=== PATIENT | female | born 1960 | race Caucasian/White ===

== ENCOUNTER → 2016-10-05 | Outpatient (CLI) | payer BC, OTHER ==
[~2016-10-05] MED LIST: HYDR-5688 PO; LEVO50TA6 PO; LOSA25TA18 PO; TRAM-10 PO
[2016-10-05 17:45] LABS: BLOOD UREA NITROGEN 11 mg/dl (7-18); CALCIUM 9.1 mg/dl (8.5-10.1); CARBON DIOXIDE 28 mmol/L (21-32); CHLORIDE 104 mmol/L (98-107); CREATININE 0.94 mg/dl (0.60-1.20); GLUCOSE 81 mg/dl (70-99); POTASSIUM 3.8 mmol/L (3.5-5.1); SODIUM 140 mmol/L (136-145)
== END | disposition home or self-care (01) ==
LOC: C.LABBFT 10:42
PROVIDERS: ATTEND Nurse Practitioner
DX: E03.9 Hypothyroidism, unspecified (principal); I10 Essential (primary) hypertension

== ENCOUNTER 2016-10-15 21:57 | Emergency (ER) | payer BC ==
[~2016-10-15] VITALS: Ht 167.6 cm; Wt 90.3 kg
[2016-10-15 22:05] VITALS: TEMP 36.7; Ht 167.6 cm; Wt 90.3 kg
[2016-10-15] MEDS ORDERED: IBUPROFEN 600 MG TAB PO STA (22:15)
[2016-10-15] MEDS ORDERED: HYDROCODONE/ACETAMOPHEN 5/325MG TAB PO ONE (22:15)
[2016-10-15] MEDS ORDERED: LEVO50TA6 PO (22:23)
[2016-10-15] MEDS ORDERED: TRAM-10 PO (22:23)
[2016-10-15] MEDS ORDERED: LOSA25TA18 PO (22:23)
--- NOTE | 2016-10-15 22:49 | DIAGNOSTIC IMAGING REPORT ---
RIGHT FOOT 3 VIEWS CLINICAL HISTORY: Fall with right foot injury. FINDINGS: 3 views of the right foot are obtained. No prior studies are available for comparison at the time of dictation. The skeletal structures are osteopenic. No fracture is seen. Mild degenerative change is noted at the first metatarsophalangeal joint. The joint spaces are otherwise maintained. The overlying soft tissues are within normal limits. A large plantar heel spur is noted. IMPRESSION: No acute bony abnormality is seen in the right foot. Electronically signed by: Dillon Rangel M.D. 10/15/2016 10:48 PM Dictated Date/Time: 10/15/2016 10:46 PM
--- NOTE | 2016-10-15 22:52 | DIAGNOSTIC IMAGING REPORT ---
LEFT FOREARM 2 VIEWS CLINICAL HISTORY: Fall with left arm pain. FINDINGS: AP and lateral views of the left forearm are obtained. No prior studies are available for comparison at the time of dictation. The skeletal structures are osteopenic. No fracture is seen. The wrist and elbow joints appear maintained. The overlying soft tissues are within normal limits. IMPRESSION: There is no radiographic evidence of left forearm fracture. Electronically signed by: Dillon Rangel M.D. 10/15/2016 10:51 PM Dictated Date/Time: 10/15/2016 10:49 PM
[2016-10-15] MEDS ORDERED: HYDR-5688 PO (23:09)
[2016-10-15 23:10] VITALS: BP 145/83; PULSE 71; O2SAT 96
[2016-10-15] MEDS ORDERED: NORCO 5/325MG HOME PACK PO ONE (23:15)
--- NOTE | 2016-10-16 00:54 | EMERGENCY ROOM VISIT NOTE ---
History First contact with patient: 22:08 Chief Complaint: FOOT PAIN Stated Complaint: RIGHT FOOT SWOLLEN, MAYBE BROKEN TOE History of Present Illness The patient is a 56 year old female who presents to the Emergency Room with complaints of right foot and left arm pain after falling outside about 4 hours ago. The patient states that she slipped on ice on her deck, and twisted her foot. She was able to ambulate after the injury, but has developed bruising and swelling that has her concerned for a possible fracture. The patient did not have chest pain, chest tightness, shortness of breath, lightheadedness, dizziness, or palpitations before or after the event. The fall appears to be mechanical in nature. She rates her current discomfort a 5/10 that worsens with ambulation. She does not have a history of previous injury to this foot or forearm. No bleeding noted or other injuries. Review of Systems More than 10 systems were reviewed and otherwise negative with the exception of history of present illness. Past Medical/Surgical History No pertinent chronic medical disease Family History No pertinent family history Social History Smoking Status: Never Smoker Housing Status: lives with family Current/Historical Medications Scheduled Levothyroxine Sodium (Levothyroxine Sodium), 1 TAB PO DAILY Losartan Potassium (Cozaar), Unknown Dose PO DAILY Scheduled PRN Hydrocodone/Acetaminophen 5MG/325MG (Vivian 5MG/325MG), 1 TABLET PO Q6 PRN for Pain Tramadol (Ultram), 50 MG PO Q4H PRN for Pain Allergies Coded Allergies: No Known Allergies (Unverified , 10/15/16) Physical Exam Vital Signs Date Time Temp Pulse Resp B/P Pulse Ox O2 Delivery O2 Flow Rate FiO2 10/15/16 23:10 71 16 145/83 96 Room Air 10/15/16 22:05 36.7 106 16 154/98 96 Room Air Pain Rating (0-10): 2.0 Physical Exam VITALS: Vitals are noted on the nurse's note and reviewed by myself. Vital signs stable. GENERAL: Well-developed, well-nourished, white female, who is in no acute distress and resting comfortably. Patient is cooperative with the examination. HEAD: Normocephalic atraumatic. NECK: Supple without nuchal rigidity. No lymphadenopathy. No thyromegaly. Cervical spine is nontender. HEART: Regular rate and rhythm without murmurs gallops or rubs. LUNGS: Clear to auscultation bilaterally without wheezes, rales or rhonchi. No retractions or accessory muscle use. MUSCULOSKELETAL: Bruising appreciated over the mid left forearm measuring approximately 3 cm in diameter. There is no laceration or deformity of the left upper extremity. Additionally the right foot has bruising and ecchymosis over the first, second, third metatarsals. These areas are tender on palpation. Neurovascular status is intact about the extremities. No bleeding or gross deformities. NEURO: Patient was alert and oriented to person place and time. CN II through XII grossly intact. Medical Decision & Procedures ER Provider Diagnostic Interpretation: RIGHT FOOT 3 VIEWS CLINICAL HISTORY: Fall with right foot injury. FINDINGS: 3 views of the right foot are obtained. No prior studies are available for comparison at the time of dictation. The skeletal structures are osteopenic. No fracture is seen. Mild degenerative change is noted at the first metatarsophalangeal joint. The joint spaces are otherwise maintained. The overlying soft tissues are within normal limits. A large plantar heel spur is noted. IMPRESSION: No acute bony abnormality is seen in the right foot. LEFT FOREARM 2 VIEWS CLINICAL HISTORY: Fall with left arm pain. FINDINGS: AP and lateral views of the left forearm are obtained. No prior studies are available for comparison at the time of dictation. The skeletal structures are osteopenic. No fracture is seen. The wrist and elbow joints appear maintained. The overlying soft tissues are within normal limits. IMPRESSION: There is no radiographic evidence of left forearm fracture. Medications Administered Medications (Trade) Dose Ordered Sig/Kristan Route Start Time Stop Time Status Last Admin Dose Admin Acetaminophen/ Hydrocodone Bitart (Vivian 5/325 Tab) 1 tab NOW ONCE PO 10/15/16 22:15 10/15/16 22:16 DC 10/15/16 22:41 1 TAB Ibuprofen (Motrin Tab) 600 mg NOW STAT PO 10/15/16 22:15 10/15/16 22:16 DC 10/15/16 22:40 600 MG Acetaminophen/ Hydrocodone Bitart (Vivian 5/325mg Home Pack) 1 homepack UD ONCE PO 10/15/16 23:15 10/15/16 23:16 DC 10/15/16 23:16 1 HOMEPACK ED Course Physical exam and history were performed. Nursing notes and EMR were reviewed. Patient appears to have suffered a mechanical fall with subsequent injury to her right foot and left forearm. The patient was given 1 tablet of oral Vicodin here in the department as well as 600 mg ibuprofen. X-rays were obtained and do not show evidence of acute fractures or dislocation. I discussed up with her care with the patient, and will place her in a postop shoe. She does have crutches from home that she is comfortable using. The patient was asked to follow with orthopedics for further care and management. She was given a note for work. The patient was otherwise invited back to the ER with any new, worsening, or concerning symptoms. The chart was completed utilizing [employer] Voice Recognition Software. Grammatical errors, random word insertions, pronoun errors, and incomplete sentences are an occasional consequence of this system due to software limitations, ambient noise, and hardware issues. Any formal questions or concerns about the content, text, or information contained within the body of this dictation should be directly addressed to the provider for clarification. . Medical Decision Differential diagnosis includes, but is not limited to: Sprain, strain, fracture , dislocation, subluxation, contusion, and others Impression Primary Impression: Injury of right foot Additional Impression: Injury of left forearm Departure Information Dispostion Home / Self-Care Condition GOOD Prescriptions Hydrocodone/Acetaminophen 5MG/325MG (Vivian 5MG/325MG) Tab 1 TABLET PO Q6 Y for Pain, #12 TAB For Initial Treatment Prov: Dustin Kumar PA-C 10/15/16 Referrals Tashi Forbes D.O. Forms HOME CARE DOCUMENTATION FORM, Work Instructions, Additional Instructions: Patient was seen and evaluated today in the emergency department fo medical care. Return to work on 10/19/2016. Please excuse. IMPORTANT VISIT INFORMATION Patient Instructions [facility] Additional Instructions You were seen and evaluated today on an emergency basis only. This is not a substitute for, or an effort to provide, complete comprehensive medical care. It is not possible to recognize and treat all injuries or illnesses in a single emergency department visit. For this reason it is recommended that you followup with [facility] , Dr. Forbes's office, in about one week for ongoing care and evaluation. For baseline pain relief you may alternate ibuprofen and acetaminophen every 4 hours for pain control. Take 600 mg ibuprofen (Advil) and then 4 hours later take 1000 mg acetaminophen (Tylenol). Do not take more than 3000 mg acetaminophen in a single day. Vivian (hydrocodone/acetaminophen) 5/325 mg every 6 hours as needed for worsening breakthrough pain. Do not drink or drive on Vivian. This medication will likely make you tired. Do not take Vivian and Tylenol at the same time as both contain acetaminophen. Vivian may cause constipation. You may wish to take an [id number] stool softener like Colace if this occurs. Wear your postop shoe and use your crutches until otherwise instructed by orthopedics. You are welcome to return to the emergency department anytime with new, worsening, or concerning symptoms. Work Instructions Additional Work Instructions: Patient was seen and evaluated today in the emergency department for medical care. Return to work on 10/19/2016. Please excuse. Problem Qualifiers
== END 2016-10-15 23:20 | disposition home or self-care (01) ==
LOC: C.EDB 21:58
DX: S99.921A Unspecified injury of right foot, initial encounter (principal); S59.912A Unspecified injury of left forearm, initial encounter; W00.0XXA Fall on same level due to ice and snow, initial encounter; Y92.008 Other place in unspecified non-institutional (private) residence as the place of occurrence of the external cause

== ENCOUNTER 2025-01-26 10:13 | Inpatient (IN) ==
--- NOTE | 2025-01-26 10:43 | Emergency Department Note ---
Impression & Plan Acute renal failure, Dehydration, Intractable nausea, Hypokalemia, Epigastric abdominal pain ED Provider Note CHIEF COMPLAINT: Abdominal pain HISTORY OF PRESENTING ILLNESS: This 64-year-old female patient presents to the emergency department for evaluation of epigastric abdominal pain and constant nausea. She has had symptoms for the past couple weeks, but worse over the past 4 days. She denies any vomiting. She has not had a bowel movement in the past 2 days. She denies any urinary symptoms. Maybe a fever and chills the first day, but she did not check her temperature. She has not been eating or drinking much recently because of the symptoms. She has been taking Zofran and Carafate at home without much improvement of her symptoms. She also took Tylenol with mild improvement of her pain, but not the nausea. She had an EGD after her previous episode of similar symptoms 2 months ago that was normal per patient. She states that she called her PCP this morning and they sent her to the ER. She has had a hysterectomy, but no other abdominal surgeries. She denies any chest pain or shortness of breath. REVIEW OF SYSTEMS: See HPI for pertinent positives and pertinent negatives. ALLERGIES: NKDA MEDICATIONS: See below PAST MEDICAL HISTORY: See below PHYSICAL EXAM: VITALS: Vitals are noted on the nurse's note and reviewed by myself. GENERAL: Non toxic, in no acute distress, non-diaphoretic. SKIN: Capillary refill <2 sec. EYES: PERRLA. EOMI. Conjunctivae without injection, sclerae without icterus. NOSE: Patent without discharge. MOUTH: Mucous membranes moist. Uvula midline. Airway patent. NECK: Supple without nuchal rigidity. HEART: Regular rate and rhythm without murmurs gallops or rubs. LUNGS: Clear to auscultation bilaterally without wheezes, rales or rhonchi. No retractions or accessory muscle use. ABDOMEN: Positive bowel sounds x 4. Normal tympanic percussion. Soft, mild epigastric abdominal tenderness. No masses or hepatosplenomegaly. Perez sign negative. No CVA tenderness. No guarding, rigidity, or rebound tenderness. No focal RLQ or LLQ tenderness. MUSCULOSKELETAL: No gross musculoskeletal defects. NEURO: Patient was alert and oriented. No focal neurological deficits. DIFFERENTIAL DIAGNOSIS: Differential diagnosis includes hepatitis, pancreatitis, cholecystitis, cholelithiasis, appendicitis, kidney stone, pyelonephritis, UTI, gastritis, gastroenteritis, mesenteric adenitis, obstruction, constipation, hernia, abdominal abscess, perforation, diverticulitis, IBD, ischemic colitis, abdominal aortic aneurysm, , ectopic , ovarian cyst, ovarian torsion, acute salpingitis, or others. ED COURSE AND MEDICAL DECISION MAKING: MEDICATIONS GIVEN: 500 mL normal saline solution bolus. Tylenol 1000 mg IV. Zofran 4 mg IV. Reglan 10 mg IV. K rider 10 meq IV x 2. MONITOR: Continuous court recording monitor: Order was placed for continuous court recording monitor. Patient was placed on the court recording monitor and continuous pulse ox. Patient was noted to be in normal sinus rhythm at an initial rate of 70 bpm per my interpretation. EKG: EKG was interpreted by myself as normal sinus rhythm at [address] and T wave changes, but no significant change from her previous EKG and no evidence for acute STEMI. INTERPRETATION OF LABS: I interpreted the labs with full lab results as below in the lab section of this note. Laboratory results pertinent to the emergent complaint are discussed in the MDM section below. The patient was advised to follow up with their PCP and/or specialist(s) for further outpatient monitoring and management of any abnormal results. INTERPRETATION OF IMAGING: Imaging studies were interpreted by myself and read by radiology as per the imaging section of this note. The patient was advised to follow up with their PCP and/or specialist(s) for further outpatient management of any non-emergent abnormal findings. Chest x-ray negative for acute cardiopulmonary etiology. CT scan of the abdomen pelvis without contrast showed no acute intra-abdominal or intrapelvic abnormality. CONSULTATIONS: On-call hospitalist MDM SUMMARY: I examined the patient. The patient has had constant nausea for the past couple weeks that has been worse for the past 4 days with some mild discomfort in her epigastric area. She has not had a bowel movement in the past 2 days. She denies any chest pain or shortness of breath. An IV lock was placed and labs were drawn. The patient was given 500 mL normal saline solution bolus, Tylenol 1000 mg IV, Zofran 4 mg IV, and Reglan 10 mg IV without much improvement of her symptoms. The patient's potassium was low and she was given K rider 10 meq IV x 2. CBC normal at 5.84. Hemoglobin normal at 13. Platelet count elevated at 402. Sodium 135, potassium 2.8, chloride 97, anion gap 13, creatinine 1.83, and glucose 121. CMP otherwise normal. Magnesium normal. High-sensitivity troponin normal. TSH low at 0.267 with free T4 low at 1.65. The patient initially could not give a urine sample in the ER, but her urinalysis came back just that she was being admitted. Urinalysis with trace blood, trace ketones, 2+ leukocyte Estrace, 21-50 white blood cells, 6-10 hyaline cast, 3-5 epithelial cells, and 1+ bacteria. The patient denies any urinary symptoms. Urine culture is pending. Chest x-ray negative for acute cardiopulmonary etiology. CT scan of the abdomen pelvis without contrast showed no acute intra-abdominal or intrapelvic abnormality. I had a meaningful discussion about this patient with Dr. Lujan who agrees with my assessment and the treatment plan. The patient has had prolonged symptoms and is not really eating or drinking much at home. The patient did not have much improvement with the medications given in the ER. Her creatinine is worse compared to her baseline. Potassium also low at 2.8. Urine questionable for infection versus contamination with urine culture pending. CT scan without acute abnormalities. Due to the patient's continued symptoms, dehydration, and laboratory findings, we feel the patient would benefit from admission for further evaluation and treatment. I spoke with the on-call hospitalist who agreed to admit the patient for further evaluation and treatment. Please refer to their dictation for further details. The patient's care was transferred in stable condition. DIAGNOSIS: Acute renal failure Dehydration Intractable nausea Epigastric abdominal pain Hypokalemia Past Med/Surg History Problem List (Updated 01/26/25 @ 15:29 by Jennifer Lopez PA-C) Epigastric abdominal pain (Acute) Hypokalemia (Acute) Intractable nausea (Acute) Dehydration (Acute) Acute renal failure (Acute) Menopausal symptoms (Acute) Enlarged thyroid (Acute) Medical History Nicotine dependence, cigarettes, uncomplicated Renal cyst Alcohol use disorder GERD (gastroesophageal reflux disease) Anxiety Hyperlipidemia Hypertension Hypothyroidism Vitamin B12 deficiency Surgical History No significant past surgical history Family History Other Hypertension Denies family history of Ovarian cancer Breast cancer Colorectal cancer Social History Smoking Status: Current every day smoker Tobacco Type: Cigarettes Age Started Using Tobacco: 17; packs per day: 0.25; Cigarettes Per Day: 15; Second Hand Exposure: Yes; Do You Dip or Chew Tobacco: No; Hx Alcohol Use: Yes Alcohol type: beer, wine and hard liquor Alcohol Intake Frequency: Monthly or Less Hx Substance Use: No Preferred Language: Iraqi marital status: / Current Living Situation: Alone current occupational status: retired Feels Safe at Home: Yes Childhood Exposure to Second-Hand Smoke: No Diet: regular caffeine: Yes Dental Care, Regularly: Yes Physical Activity Frequency: Daily Seatbelt Use: always Sunscreen Use: Yes Allergies Allergies Allergy/AdvReac Type Severity Reaction Status Date / Time No Known Allergies Allergy Verified 06/16/24 11:18 Home Meds Home Medications Medication Instructions Recorded Confirmed pantoprazole 40 mg tablet,delayed 40 mg PO BID 01/26/25 01/26/25 release (Protonix) sucralfate 1 gram tablet 1 g PO QID 01/26/25 01/26/25 Previous Rx's Medication Instructions Recorded atorvastatin 40 mg tablet 40 mg PO DAILY #90 tabs 07/24/24 losartan 100 mg tablet 100 mg PO DAILY 90 days #90 tabs 07/24/24 amlodipine 10 mg tablet 10 mg PO DAILY #90 tabs 08/18/24 fluoxetine 40 mg capsule 40 mg PO DAILY #90 caps 08/18/24 hydrochlorothiazide 12.5 mg tablet 12.5 mg PO DAILY #90 tabs 08/18/24 levothyroxine 137 mcg tablet 137 mcg PO DAILY #90 tabs 12/11/24 Results & Data (ED) Vital Signs Vital Signs - 24 hr 01/26/25 10:19 01/26/25 10:52 01/26/25 11:00 Temperature 36.6 C Temperature Source Oral Pulse Rate 92 H 75 73 Pulse Rate from SpO2 Sensor 72 Respiratory Rate 20 18 Respiratory Effort / Characteristics Non-Labored Spontaneous Respiratory Depth Normal Respiratory Pattern Regular Blood Pressure 119/78 118/76 Blood Pressure [Left Arm] Blood Pressure Mean 91 90 Blood Pressure Mean [Left Arm] Blood Pressure Position [Left Arm] Pulse Oximetry 98 91 Oxygen Delivery Method Room Air Sepsis Recent Fever Within 48 Hours No Sepsis New/Unexplained Change in Mental Status N/A Sepsis Action Taken by Nursing No Action Required 01/26/25 11:00 01/26/25 11:27 01/26/25 11:30 Temperature Temperature Source Pulse Rate 64 Pulse Rate from SpO2 Sensor 63 Respiratory Rate 12 Respiratory Effort / Characteristics Respiratory Depth Respiratory Pattern Blood Pressure 118/76 118/74 Blood Pressure [Left Arm] Blood Pressure Mean 94 91 Blood Pressure Mean [Left Arm] Blood Pressure Position [Left Arm] Pulse Oximetry 96 Oxygen Delivery Method Sepsis Recent Fever Within 48 Hours Sepsis New/Unexplained Change in Mental Status Sepsis Action Taken by Nursing 01/26/25 11:39 01/26/25 12:00 01/26/25 12:00 Temperature Temperature Source Pulse Rate 62 57 L Pulse Rate from SpO2 Sensor 61 60 Respiratory Rate 18 11 L Respiratory Effort / Characteristics Respiratory Depth Respiratory Pattern Blood Pressure 118/68 Blood Pressure [Left Arm] Blood Pressure Mean 86 Blood Pressure Mean [Left Arm] Blood Pressure Position [Left Arm] Pulse Oximetry 96 72 L Oxygen Delivery Method Sepsis Recent Fever Within 48 Hours Sepsis New/Unexplained Change in Mental Status Sepsis Action Taken by Nursing 01/26/25 12:00 01/26/25 12:39 01/26/25 12:54 Temperature Temperature Source Pulse Rate 57 L Pulse Rate from SpO2 Sensor 57 L Respiratory Rate 19 Respiratory Effort / Characteristics Respiratory Depth Respiratory Pattern Blood Pressure 118/68 143/78 H Blood Pressure [Left Arm] Blood Pressure Mean 86 95 Blood Pressure Mean [Left Arm] Blood Pressure Position [Left Arm] Pulse Oximetry 99 Oxygen Delivery Method Sepsis Recent Fever Within 48 Hours Sepsis New/Unexplained Change in Mental Status Sepsis Action Taken by Nursing 01/26/25 14:00 Temperature Temperature Source Pulse Rate Pulse Rate from SpO2 Sensor Respiratory Rate 20 Respiratory Effort / Characteristics Non-Labored Spontaneous Respiratory Depth Normal Respiratory Pattern Regular Blood Pressure Blood Pressure [Left Arm] 137/102 H Blood Pressure Mean Blood Pressure Mean [Left Arm] 113 Blood Pressure Position [Left Arm] Lying Pulse Oximetry 98 Oxygen Delivery Method Room Air Sepsis Recent Fever Within 48 Hours Sepsis New/Unexplained Change in Mental Status Sepsis Action Taken by Nursing Laboratory Data 01/26/25 10:45 01/26/25 10:45 Lab Results 01/26/25 01/26/25 Range/Units 10:45 12:55 WBC 5.84 (4.8-10.8) K/ul RBC 4.43 (4.20-5.40) M/uL Hgb 13.0 (12.0-16.0) g/dl Hct 37.1 (37.0-47.0) % MCV 83.7 (80.0-100.0) fL MCH 29.3 (25.0-34.0) pg MCHC 35.0 (32.0-36.0) g/dL RDW Std Deviation 40.9 (36.4-46.3) fL RDW Coeff of Divine 13.3 (11.5-14.5) % Plt Count 402 H (130-400) K/uL MPV 9.8 (9.4-12.4) fL Immature Gran % (Auto) 0.2 % Neut % (Auto) 63.9 % Lymph % (Auto) 23.6 % Perry % (Auto) 9.4 % Eos % (Auto) 2.2 % Baso % (Auto) 0.7 % Neut # (Auto) 3.73 (1.40-6.50) K/uL Lymph # (Auto) 1.38 (1.20-3.40) K/uL Perry # (Auto) 0.55 (0.11-0.59) K/uL Eos # (Auto) 0.13 (0.00-0.50) K/uL Baso # (Auto) 0.04 (0.00-0.20) K/uL Immature Gran # (Auto) 0.01 (0.01-0.20) K/uL Sodium 135 L (136-145) mmol/L Potassium 2.8 L (3.5-5.1) mmol/L Chloride 97 L (98-107) mmol/L Carbon Dioxide 25 (21-32) mmol/L Anion Gap 13 H (3-11) BUN 21 (6-23) mg/dl Creatinine 1.83 H (0.6-1.2) mg/dl Est Cr Clr Drug Dosing 34.7 ml/min eGFR 30.27 BUN/Creatinine Ratio 11.5 (10-20) Glucose 121 H (70-99(Fasting)) mg/dl Calcium 9.7 (8.6-10.3) mg/dl Magnesium 1.8 (1.7-2.4) mg/dl Total Bilirubin 0.5 (0.2-1.0) mg/dl AST 16 (13-39) U/L ALT 13 (7-52) U/L Alkaline Phosphatase 85 (34-104) U/L Troponin I High Sens 9.1 (0-14) pg/ml Total Protein 7.7 (6.0-8.3) gm/dl Albumin 4.5 (3.4-5.0) gm/dl Globulin 3.2 (2.5-4.0) gm/dl Albumin/Globulin Ratio 1.4 (0.9-2) Lipase 19 (11-82) U/L TSH 0.267 L (0.300-4.500) uIu/ml Free T4 1.65 H (0.61-1.60) ng/dl Urine Color Yellow Urine Appearance Clear (Clear) Urine pH 5.5 (4.5-7.5) Ur Specific Shelby 1.013 (1.000-1.030) Urine Protein Negative (Negative) Urine Glucose (UA) Negative (Negative) Urine Ketones Trace H (Negative) Urine Blood Trace H (Negative) Urine Nitrite Negative (Negative) Urine Bilirubin Negative (Negative) Urine Urobilinogen Negative (Negative) Ur Leukocyte Esterase 2+ H (Negative) Urine WBC (Auto) 21-50 H (0-5) /hpf Urine RBC (Auto) 0-2 (0-2) /hpf U Hyaline Cast (Auto) 6-10 H (0-2) /lpf U Epithel Cells (Auto) 3-5 H (0-2) /hpf Urine Bacteria (Auto) 1+ H (None Seen) Hyaline Casts Present A (None Presnt) /lpf Urine Comment Administered Medications Discontinued Medications Sodium Chloride (Nss) 500 mls @ 999 mls/hr IV .Q31M ONE Stop: 01/26/25 11:28 Last Infusion: 01/26/25 12:56 Dose: Infused Documented By: Admin: 01/26/25 11:19 Dose: 999 mls/hr Documented By: Acetaminophen (Ofirmev) 1,000 mg in 100 mls @ 400 mls/hr IV NOW STA Stop: 01/26/25 11:12 Last Infusion: 01/26/25 12:55 Dose: Infused Documented By: Admin: 01/26/25 11:21 Dose: 400 mls/hr Documented By: Potassium Chloride (K Jack / Wtr) 10 meq in 100 mls @ 100 mls/hr IV Q1H GENNARO Stop: 01/26/25 13:59 Last Admin: 01/26/25 14:10 Dose: 100 mls/hr Documented By: Infusion: 01/26/25 13:55 Dose: Infused Documented By: Admin: 01/26/25 12:55 Dose: 100 mls/hr Documented By: ABRAM Metoclopramide HCl (Metoclopramide Hcl Inj 5 Mg/Ml 2 Ml Vial) 10 mg IV NOW STA Stop: 01/26/25 12:59 Last Admin: 01/26/25 14:10 Dose: 10 mg Documented By: TDM Ondansetron HCl (Ondansetron Inj 2 Mg/Ml 2 Ml Vial) 4 mg IV NOW STA Stop: 01/26/25 10:59 Last Admin: 01/26/25 11:19 Dose: 4 mg Documented By: MR Imaging Data Radiologist's Impression: Chest X-Ray 01/26/25 11:01 XR chest 1V portable CLINICAL HISTORY: Upper abdominal pain, nausea COMPARISON STUDY: 10/10/2024 FINDINGS: Heart size and pulmonary vasculature are normal. No effusion, consolidation, or pneumothorax. IMPRESSION: No acute findings. ACT 112: Negative or not required by law. Electronically signed by: Luther Green M.D. 01/26/2025 11:49 AM Abdomen/Pelvis CT 01/26/25 11:[address] WITHOUT CONTRAST CT DOSE: 1330.13 mGy.cm HISTORY: Acute upper abdominal pain with nausea upper abdominal pain, nausea TECHNIQUE: Multiaxial CT images of the abdomen and pelvis were performed without contrast. A dose lowering technique was utilized adhering to the principles of ALARA. COMPARISON STUDY: 10/10/2024 FINDINGS: Clear lung bases. Mural fibrofatty changes of the left ventricular apex compatible with a prior infarct. No pneumatosis or pneumoperitoneum. The unenhanced spleen, pancreas, gallbladder, adrenal glands and liver are within normal limits. Mild nonspecific bilateral perinephric stranding. No hydronephrosis. Complex cyst of the superior pole right kidney redemonstrated, 1.4 cm. Partial distention of the urinary bladder. Atherosclerosis of the aorta. No lymphadenopathy. No bowel obstruction or bowel wall thickening. Colonic diverticulosis without acute diverticulitis. No CT evidence of acute appendicitis. No acute fracture. IMPRESSION: 1. No acute intra-abdominal or intrapelvic abnormality. 2. Incidental findings as above. ACT 112: Negative or not required by law. The above report was generated using voice recognition software. It may contain grammatical, syntax or spelling errors. Electronically signed by: Ramirez Flores M.D. 01/26/2025 1:01 PM Discharge Plan Visit Data Chief Complaint: Abdominal Pain Stated Complaint: SICK STOMACH ED Provider: Shun Lujan ED Midlevel Provider: Jennifer Lopez Discharge Problem: Acute renal failure, Dehydration, Intractable nausea, Hypokalemia, Epigastric abdominal pain Patient Disposition: Admitted As Inpatient Condition: Fair Prescriptions Prescriptions: No Action atorvastatin 40 mg tablet 40 mg PO DAILY Qty: 90 3RF losartan 100 mg tablet 100 mg PO DAILY 90 Days Qty: 90 4RF amlodipine 10 mg tablet 10 mg PO DAILY Qty: 90 3RF fluoxetine 40 mg capsule 40 mg PO DAILY Qty: 90 3RF hydrochlorothiazide 12.5 mg tablet 12.5 mg PO DAILY Qty: 90 3RF levothyroxine 137 mcg tablet 137 mcg PO DAILY Qty: 90 3RF sucralfate 1 gram tablet 1 g PO QID pantoprazole [Protonix] 40 mg tablet,delayed release (DR/EC) 40 mg PO BID Referrals Referrals: Jennie Aquino MD [Primary Care Provider] - Discharge Problem: Acute renal failure Qualifiers: Acute renal failure type: unspecified Qualified Code(s): N17.9 - Acute kidney failure, unspecified
[2025-01-26 11:15] LABS: Basophils # (auto) 0.04 K/uL (0.00-0.20); Basophils % (auto) 0.7 %; Eosinophils # (auto) 0.13 K/uL (0.00-0.50); Eosinophils % (auto) 2.2 %; Hematocrit (blood only) 37.1 % (37.0-47.0); Immature Granulocytes # (auto) 0.01 K/uL (0.01-0.20); Immature Granulocytes % (auto) 0.2 %; Lymphocytes # (auto) 1.38 K/uL (1.20-3.40); Lymphocytes % (auto) 23.6 %; Mean Corpuscular Hemoglobin 29.3 pg (25.0-34.0); Mean Corpuscular Volume 83.7 fL (80.0-100.0); Mean Platelet Volume 9.8 fL (9.4-12.4); Monocytes # (auto) 0.55 K/uL (0.11-0.59); Monocytes % (auto) 9.4 %; Neutrophils # (auto) 3.73 K/uL (1.40-6.50); Neutrophils % (auto) 63.9 %; Platelet Count 402 K/uL (130-400); RDW Coefficient of Variation 13.3 % (11.5-14.5); RDW Standard Deviation 40.9 fL (36.4-46.3); Red Blood Count 4.43 M/uL (4.20-5.40); White Blood Count 5.84 K/ul (4.8-10.8)
[2025-01-26] MEDS: SODIUM CHLORIDE 0.9% 500 ML IV ONE (11:19)
[2025-01-26] MEDS: ONDANSETRON INJ 2 MG/ML 2 ML VIAL IV STA (11:19)
[2025-01-26] MEDS: ACETAMINOPHEN 1,000 MG/100 ML VIAL IV STA (11:21)
[2025-01-26 11:44] LABS: Albumin Globulin Ratio 1.4 (0.9-2); Albumin Level 4.5 gm/dl (3.4-5.0); BUN Creatinine Ratio 11.5 (10-20); Bilirubin,Total 0.5 mg/dl (0.2-1.0); Calcium 9.7 mg/dl (8.6-10.3); Creatinine Clr Calc Pharmacy 34.7 ml/min; Globulin 3.2 gm/dl (2.5-4.0); Magnesium 1.8 mg/dl (1.7-2.4); Potassium 2.8 mmol/L (3.5-5.1); Total Protein 7.7 gm/dl (6.0-8.3)
[2025-01-26 11:50] LABS: Troponin I High Sensitivity 9.1 pg/ml (0-14)
--- NOTE | 2025-01-26 11:51 | XRay Report ---
XR chest 1V portable CLINICAL HISTORY: Upper abdominal pain, nausea COMPARISON STUDY: 10/10/2024 FINDINGS: Heart size and pulmonary vasculature are normal. No effusion, consolidation, or pneumothora x. IMPRESSION: No acute findings. ACT 112: Negative or not required by law. Electronically signed by: Luther Green M.D. 01/26/2025 11:49 AM
[2025-01-26 11:59] LABS: Thyroid Stimulating Hormone 0.267 uIu/ml (0.300-4.500)
[2025-01-26 12:46] LABS: T4 Free Thyroxine 1.65 ng/dl (0.61-1.60)
[2025-01-26] MEDS: POTASSIUM CHLORIDE / WTR 10 MEQ/100 ML PLCT IV SCH (12:55)
--- NOTE | 2025-01-26 13:02 | CT Scan Report ---
ABDOMEN AND PELVIS CT WITHOUT CONTRAST CT DOSE: 1330.13 mGy.cm HISTORY: Acute upper abdominal pain with nausea upper abdominal pain, nausea TECHNIQUE: Multiaxial CT images of the abdomen and pelvis were performed without contrast. A dose lo wering technique was utilized adhering to the principles of ALARA. COMPARISON STUDY: 10/10/2024 FINDINGS: Clear lung bases. Mural fibrofatty changes of the left ventricular apex compatible with a p rior infarct. No pneumatosis or pneumoperitoneum. The unenhanced spleen, pancreas, gallbladder, adren al glands and liver are within normal limits. Mild nonspecific bilateral perinephric stranding. No hydronephrosis. Complex cyst of the superior milton e right kidney redemonstrated, 1.4 cm. Partial distention of the urinary bladder. Atherosclerosis of the aorta. No lymphadenopathy. No bowel obstruction or bowel wall thickening. Colonic diverticulosis without acute diverticulitis. No CT evidence of acute appendicitis. No acute fracture. IMPRESSION: 1. No acute intra-abdominal or intrapelvic abnormality. 2. Incidental findings as above. ACT 112: Negative or not required by law. The above report was generated using voice recognition software. It may contain grammatical, syntax o r spelling errors. Electronically signed by: Ramirez Flores M.D. 01/26/2025 1:01 PM
[2025-01-26 13:26] LABS: Appearance Urine Clear (Clear); Bacteria Urine Automated 1+ (None Seen); Bilirubin Urine Negative (Negative); Blood Urine Trace (Negative); Color Urine Yellow; Glucose Urine UA Negative (Negative); Hyaline Casts Urine Present /lpf (None Presnt); Ketones Urine Trace (Negative); Leukocyte Esterase Urine 2+ (Negative); Nitrite Urine Negative (Negative); Protein Urine Negative (Negative); RBC Urine Automated 0-2 /hpf (0-2); Specific Gravity Urine 1.013 (1.000-1.030); Urobilinogen Urine Negative (Negative); WBC Urine Automated 21-50 /hpf (0-5); pH Urine 5.5 (4.5-7.5)
[2025-01-26] MEDS: METOCLOPRAMIDE HCL INJ 5 MG/ML 2 ML VIAL IV STA (14:10)
--- NOTE | 2025-01-26 14:47 | History & Physical Report ---
Date of Service January 26, 2025 Assessment & Plan Admission and Anticipated Discharge Date Admission Date: #acute renal failureappears to be due to dehydration and poor p.o. intake. Rehydrate, replace potassium. While "on paper" a renal tubular acidosis could also be worked because this seems unlikely given the intermittent nature of her nausea and the rarity at which she truly does not renal failure. Follow metabolic panel. Hold hydrochlorothiazide and losartan for now #Intractable nauseaseems like there may actually be 2 etiologies at play. The common pattern for her of intractable nausea with a paucity of vomiting as well as a negative workup with gallbladder ultrasound, CT abdomen pelvis, and EGD (report confirms that there were no findings on EGD done by Dr. Tom on 11/1824)and the fact that she has reproducible palpable trigger points makes me suspect that she actually has somatic visceral "phantom nausea" from trigger points. Continue to follow for other etiologies, and if treatment of the trigger points does not alleviate the nausea over time, consider gastric emptying study as wellbut for now with other diagnoses being ruled out and the pattern fitting welltreat as trigger point related. Voltaren gel, consider injections if she does not get better reasonably quickly. ---> Separately, it is a bit concerning that whenever you combine her fatigue with nausea that actually does lead to vomiting with exertion, as well as the incidental finding of myocardial fatty infiltration at the apex and her EKG changesI do worry that she may have inferior ischemia causing fatigue and the separate/different nausea that does lead to vomitingsee workup under "fatigue" #fatiguewith age hypertension hyperlipidemia, vascular disease certainly is possible, when we combine that with her EKG findings and incidental finding on CT abdomen when it did look like her myocardial wall was fatty infiltrated consistent with prior infarctconcerning that her fatigue and the separate nausea that does lead to vomiting may be anginal equivalents. Echocardiogramif it shows regional wall motion abnormalities then consult cardiology; if it does not, would definitely want to proceed with a stress echo when she is doing well enough. #hypothyroidismTSH slightly low, free T4 slightly highdiscussed with patient that I doubt these labs are abnormal enough to be causing her any symptoms. Continue current dose of Synthroid and repeat levels in about a month. If she has persistent and these findings, then might need to lower her Synthroid dose slightly #DVT prophylaxisheparin subcu (heparin instead of Lovenox due to renal fail ure) dispositionadmit to medical, [facility]. History of Present Illness Chief Complaint: Intractable nausea Primary Care Provider: Jennie Aquino MD patient is a very pleasant 64-year-old female who comes in with intractable nausea. She has had bouts of nausea that seem to last for weeks or more on again/off again for about the last 4 years. She has not been able to find an etiology, no clear triggers, nothing clearly has not let up. Most of her episodes happen with spontaneous onset and then very heavy amounts of nausea leading to poor p.o. intake. She denies vomiting except for, interestingly, she does note pretty reliably if she is feeling nauseated and then exerts (she gives example of doing yard work) that is about the only time that she vomits. This particular episode started about 4 days ago and she was feeling worse and came to the ER for further evaluation. Her most recent previous episode was in Octoberintractable nausea and then as wellcame to the ERgallbladder workup was negative, she was referred to GI and she notes having had an [facility] about a month ago [facility], but she and her family (who seem quite reliable) notes that they were told it was normal. After the EGD she was given Zofran and Carafate which she notes do not really seem to help all that much. Separately she notes a pretty pervasive fatigue it has been going on for a whileprobably months may be progressive over yearsshe notes it to be fatigue gets worse with any exertiondoes point that sometimes she can even finish washing the dishes without feeling like she needs to lay downshe notes that usually she also feels nauseated whenever she starts to feel more fatigued. Allergies Allergy/AdvReac Type Severity Reaction Status Date / Time No Known Allergies Allergy Verified 06/16/24 11:18 Home Medications Medication Instructions Recorded Confirmed Type atorvastatin 40 mg tablet 40 mg PO DAILY #90 tabs 07/24/24 01/26/25 Rx losartan 100 mg tablet 100 mg PO DAILY 90 days #90 tabs 07/24/24 01/26/25 Rx amlodipine 10 mg tablet 10 mg PO DAILY #90 tabs 08/18/24 01/26/25 Rx fluoxetine 40 mg capsule 40 mg PO DAILY #90 caps 08/18/24 01/26/25 Rx hydrochlorothiazide 12.5 mg tablet 12.5 mg PO DAILY #90 tabs 08/18/24 01/26/25 Rx levothyroxine 137 mcg tablet 137 mcg PO DAILY #90 tabs 12/11/24 01/26/25 Rx pantoprazole 40 mg tablet,delayed 40 mg PO BID 01/26/25 01/26/25 History release (Protonix) sucralfate 1 gram tablet 1 g PO QID 01/26/25 01/26/25 History Past Med/Surg History Problem List Menopausal symptoms (Acute) Enlarged thyroid (Acute) Medical History Nicotine dependence, cigarettes, uncomplicated Renal cyst Alcohol use disorder GERD (gastroesophageal reflux disease) Anxiety Hyperlipidemia Hypertension Hypothyroidism Vitamin B12 deficiency Surgical History No significant past surgical history Family History Other Hypertension Denies family history of Ovarian cancer Breast cancer Colorectal cancer Social History Smoking Status: Current every day smoker Tobacco Type: Cigarettes Age Started Using Tobacco: 17; packs per day: 0.25; Cigarettes Per Day: 15; Second Hand Exposure: Yes; Do You Dip or Chew Tobacco: No; Hx Alcohol Use: Yes Alcohol type: beer, wine and hard liquor Alcohol Intake Frequency: Monthly or Less Hx Substance Use: No Preferred Language: Kinyarwanda marital status: / Current Living Situation: Alone current occupational status: retired Feels Safe at Home: Yes Childhood Exposure to Second-Hand Smoke: No Diet: regular caffeine: Yes Dental Care, Regularly: Yes Physical Activity Frequency: Daily Seatbelt Use: always Sunscreen Use: Yes Review of Systems Review of Systems: All systems reviewed & are unremarkable except as noted in HPI & below Physical Exam Physical Exam: In general she is awake and alert pleasant but very fatigued. No distress. HEENT normocephalic atraumatic mucous membranes moist. Cardio regular without rubs murmurs or gallops. Lungs clear to auscultation bilaterally no rales rhonchi or wheeze with good effort. Abdomen soft no epigastric tenderness but she does have palpable trigger points in her left epigastrium and left upper abdomen. Extremities show no cyanosis clubbing or edema no calf tenderness. Skin shows no rashes no pallor or icterus. Neuro shows cranial nerves II through XII grossly intact gross motor and sensory intact. Labs notedmost notably hypokalemia and MO with creatinine of 1.8. EKG shows some ST depressions although this is very similar to EKG from October, although more pronounced from the last prior from November 2022. CT abdomen pelvis noted for fatty infiltrate of the cardiac apex consistent with old [place]. No abdominal abnormality Results & Data Results & Data Vital Signs (Past 12 Hours) Vital Signs Temp Pulse Resp BP BP Pulse Ox O2 Del Method 01/26/25 14:00 20 137/102 H 98 Room Air 01/26/25 12:54 143/78 H 01/26/25 12:39 57 L 19 99 01/26/25 12:00 118/68 01/26/25 12:00 118/68 01/26/25 12:00 57 L 11 L 72 L 01/26/25 11:39 62 18 96 01/26/25 11:30 118/74 01/26/25 11:27 64 12 96 01/26/25 11:00 118/76 01/26/25 11:00 73 18 118/76 91 01/26/25 10:52 75 01/26/25 10:19 97.9 F 92 H 20 119/78 98 Room Air Code Status & VTE Plan VTE Prophylaxis Plan VTE Prophylaxis will be ordered: Yes PG Care Time/CCT Total # of Minutes Spent Total Time Spent with Patient: Total time spent is greater than 50% in coordination of care (as documented) at patient's floor/unit and/or counseling patient: Coding Level of Care Code 97832 INT INP/OBS CARE 3/75MIN
[2025-01-26] MEDS ORDERED: POLYETHYLENE (MIRALAX) 17 GM PACK PO PRN (19:25)
[2025-01-26] MEDS ORDERED: ALUMINUM/MAGNESIUM SUSP 30 ML UDC PO PRN (19:25)
[2025-01-26] MEDS ORDERED: ACETAMINOPHEN 325 MG TAB PO PRN (19:25)
[2025-01-26] MEDS ORDERED: MAGNESIUM HYDROXIDE SUSP 30 ML UDC PO PRN (19:25)
[2025-01-26] MEDS ORDERED: ONDANSETRON INJ 2 MG/ML 2 ML VIAL IV PRN (19:25)
[2025-01-26] MEDS: LACTATED RINGER'S 1,000 ML IV SCH (20:16)
[2025-01-26] MEDS: POTASSIUM CHLORIDE 20 MEQ/15 ML UDC PO SCH (20:19)
[2025-01-26] MEDS: HEPARIN SOD 5,000 UNIT/0.5 ML VIAL SQ SCH (20:19)
[2025-01-26] MEDS: PANTOprazole 40 MG TAB PO SCH (20:20)
[2025-01-26] MEDS: DICLOFENAC SOD 1% GEL 100 GM TUBE EXT SCH (21:23)
[2025-01-27 06:11] LABS: Hematocrit (blood only) 33.6 % (37.0-47.0); Hemoglobin 11.3 g/dl (12.0-16.0); Mean Corpuscular Hemoglobin 28.5 pg (25.0-34.0); Mean Corpuscular Hgb Conc 33.6 g/dL (32.0-36.0); Mean Corpuscular Volume 84.8 fL (80.0-100.0); Mean Platelet Volume 9.6 fL (9.4-12.4); Platelet Count 337 K/uL (130-400); RDW Coefficient of Variation 13.5 % (11.5-14.5); RDW Standard Deviation 41.8 fL (36.4-46.3); Red Blood Count 3.96 M/uL (4.20-5.40); White Blood Count 4.72 K/ul (4.8-10.8)
[2025-01-27] MEDS: LEVOTHYROXINE SODIUM 137 MCG TABLET PO SCH (06:17)
[2025-01-27 06:24] LABS: Calcium 9.2 mg/dl (8.6-10.3); Potassium 3.2 mmol/L (3.5-5.1)
[2025-01-27 06:30] LABS: BUN Creatinine Ratio 10.6 (10-20); Creatinine Clr Calc Pharmacy 51.7 ml/min
[2025-01-27 06:52] LABS: Basophils # (auto) 0.05 K/uL (0.00-0.20); Basophils % (auto) 1.1 %; Eosinophils # (auto) 0.15 K/uL (0.00-0.50); Eosinophils % (auto) 3.2 %; Immature Granulocytes # (auto) 0.02 K/uL (0.01-0.20); Immature Granulocytes % (auto) 0.4 %; Lymphocytes # (auto) 1.44 K/uL (1.20-3.40); Lymphocytes % (auto) 30.5 %; Monocytes % (auto) 10.6 %; Neutrophils # (auto) 2.56 K/uL (1.40-6.50); Neutrophils % (auto) 54.2 %
[2025-01-27] MEDS: D5W AND 1/2NSS + 20MEQ KCL 20 MEQ/1,000 ML BAG IV SCH (09:22)
[2025-01-27] MEDS: amLODIPine BESYLATE 5 MG TAB PO SCH (09:23)
[2025-01-27] MEDS: ATORVASTATIN 40 MG TAB PO SCH (09:23)
[2025-01-27] MEDS: FLUoxetine HCL 20 MG CAP PO SCH (09:24)
--- NOTE | 2025-01-27 12:54 | Hospitalist Progress Note ---
Date of Service January 27, 2025 Assessment & Plan (1) Nausea: Plan: Recurrent. Scheduled parenteral metoclopramide ordered. HIDA scan with ejection fraction to rule out possible chronic cholecystitis. IV fluids (2) Hypokalemia: Plan: Parenteral potassium replacement. Serial labs (3) Acute renal failure: Plan: IV fluids. Monitor urine output. Serial labs (4) Volume depletion: Plan: IV fluids. Monitor urine output Plan Hopeful discharge to home within the next day or 2 Admission and Anticipated Discharge Date Admission Date: January 26, 2025 Subjective Alert and oriented. No distress. Unfortunately the patient has recurrent nausea and could have chronic cholecystitis. HIDA scan with ejection fraction ordered. Will start scheduled dosing of IV metoclopramide. IV fluids have been tapered down with continued potassium replacement. Creatinine has improved from 1.8 on admission down to 1.2. Hydrochlorothiazide and losartan are on hold. Cardiac echo report is pending. EKG reveals chronic anterior ST and T wave changes. Stress echo in December 2022 was negative for underlying ischemia. Urine culture is growing 3 organisms inconsistent with acute UTI. Review of Systems 2 Review of Systems: Constitutionalno fever or chills ENTno blurred vision, no double vision, no epistaxis, no sore throat Respiratoryno cough, no wheezing, no shortness of breath Cardiacno palpitations, no chest pain, no syncope GIrecurrent nausea. Occasional vomiting. No diarrhea, melena, hematochezia GUno urinary retention, no urinary incontinence, no dysuria, no hematuria Musculoskeletalno joint pain, no muscle tenderness Skinno bruising, no rashes, no pruritus Neurono isolated weakness, no paresthesia, no weakness Psychno depression, no anxiety Physical Exam 2 Physical Exam: General-alert and oriented x3, no fever, no chills HEENT-head atraumatic and normocephalic, pupils equal and reactive to light, extraocular muscles intact Neck-no lymphadenopathy or thyromegaly, trachea midline Chest-clear to auscultation. No rales, wheezing or rhonchi Cardiac-regular rate and rhythm, normal S1 and S2 Abdomen-normal bowel sounds, no hepatosplenomegaly Extremities-no cyanosis, clubbing, or edema Neuro-cranial nerves II through XII intact, motor and sensory function within normal limits, strength symmetrical, no focal deficits Psych-normal affect, normal mood Results & Data Results & Data Vital Signs (Past 12 Hours) Vital Signs Temp Pulse Resp BP Pulse Ox O2 Del Method 01/27/25 07:52 36.4 C L 84 16 132/87 94 Room Air Laboratory Results 01/27/25 05:23 01/27/25 05:23 PG Care Time/CCT Total # of Minutes Spent Total Time Spent with Patient: Total time spent is greater than 50% in coordination of care (as documented) at patient's floor/unit and/or counseling patient: Coding Level of Care Code 03116 SUB INP/OBS CARE 3/50MIN Diagnoses Nausea R11.0 Hypokalemia E87.6 Acute renal failure N17.9 Acute renal failure type: unspecified Volume depletion E86.9 (3) Acute renal failure Acute renal failure type: unspecified Qualified Code(s): N17.9 - Acute kidney failure, unspecified
[2025-01-27] MEDS: METOCLOPRAMIDE HCL INJ 5 MG/ML 2 ML VIAL IV SCH (13:18)
--- NOTE | 2025-01-27 16:59 | XCELERA ---
[id number]
[2025-01-27] MEDS: POTASSIUM CHLORIDE CRTAB 20 MEQ TABCR PO SCH (19:48)
[2025-01-28 04:55] LABS: Basophils # (auto) 0.04 K/uL (0.00-0.20); Basophils % (auto) 0.9 %; Eosinophils # (auto) 0.21 K/uL (0.00-0.50); Hematocrit (blood only) 33.9 % (37.0-47.0); Hemoglobin 11.5 g/dl (12.0-16.0); Lymphocytes # (auto) 1.56 K/uL (1.20-3.40); Lymphocytes % (auto) 36.9 %; Mean Corpuscular Hemoglobin 29.2 pg (25.0-34.0); Mean Corpuscular Hgb Conc 33.9 g/dL (32.0-36.0); Mean Platelet Volume 9.8 fL (9.4-12.4); Monocytes % (auto) 11.8 %; Neutrophils # (auto) 1.92 K/uL (1.40-6.50); Neutrophils % (auto) 45.4 %; Platelet Count 344 K/uL (130-400); RDW Coefficient of Variation 13.7 % (11.5-14.5); RDW Standard Deviation 43.3 fL (36.4-46.3); Red Blood Count 3.94 M/uL (4.20-5.40); White Blood Count 4.23 K/ul (4.8-10.8)
[2025-01-28 05:14] LABS: Calcium 8.9 mg/dl (8.6-10.3); Creatinine Clr Calc Pharmacy 56.7 ml/min; Potassium 3.9 mmol/L (3.5-5.1)
[2025-01-28 07:14] VITALS: PULSE 65; RESP 18; TEMP 97.5
[2025-01-28] MEDS: MoRPHine SULFATE 2 MG/ML CARP ONE (09:02)
--- NOTE | 2025-01-28 10:00 | Nuclear Medicine Report ---
NM hepatobiliary CLINICAL HISTORY: recurrent nausea, possible chronic cholecystitis. TECHNIQUE: Sequential anterior abdominal images were obtained through 120 minutes following the intr avenous administration of 5.1 mCi of technetium-99m Choletec. 2 mg morphine was administered IV at t he 1 hour point. COMPARISON: CT of 01/26/2025 and ultrasound of 10/10/2024. FINDINGS: There is normal liver uptake with normal progression of activity into the common bile duct and the small bowel. There was small amount of gallbladder activity by 10 minutes which did not incre ase. Morphine was given. On the postmorphine images, the activity has progressed out of the liver, ga llbladder, and biliary system to the small bowel. Gallbladder ejection fracture was not obtained. IMPRESSION: 1. No evidence of cystic duct or common bile duct obstruction. 2. Gallbladder EF was not calculated due to mild gallbladder activity and morphine was given. ACT 112: Negative or not required by law. The above report was generated using voice recognition software. It may contain grammatical, syntax o r spelling errors. Electronically signed by: Luther Green M.D. 01/28/2025 9:57 AM
[2025-01-28 10:25] VITALS: BP 140/76; O2SAT 96
--- NOTE | 2025-01-28 11:26 | Discharge Summary ---
Discharge Summary Date of Service January 28, 2025 Principal Dx & Hospital Course #1 = Principal Diagnosis (1) Nausea: Recurrent. Present on admission. Now resolved with parenteral Reglan therapy. HIDA scan is abnormal and probably represents chronic cholecystitis. She probably will benefit from laparoscopic cholecystectomy in the near future. (2) Hypokalemia: Corrected with parenteral potassium replacement. Serial labs (3) Acute renal failure: Resolved with IV fluids. Monitor urine output. Serial labs. Hydrochlorothiazide will be discontinued permanently (4) Volume depletion: Corrected with IV fluids. Monitor urine output Plan Home today, January 28. See primary care provider soon as possible to discuss laparoscopic cholecystectomy. Admission HPI Per Admitting Provider patient is a very pleasant 64-year-old female who comes in with intractable nausea. She has had bouts of nausea that seem to last for weeks or more on again/off again for about the last 4 years. She has not been able to find an etiology, no clear triggers, nothing clearly has not let up. Most of her episodes happen with spontaneous onset and then very heavy amounts of nausea leading to poor p.o. intake. She denies vomiting except for, interestingly, she does note pretty reliably if she is feeling nauseated and then exerts (she gives example of doing yard work) that is about the only time that she vomits. This particular episode started about 4 days ago and she was feeling worse and came to the ER for further evaluation. Her most recent previous episode was in Octoberintractable nausea and then as wellcame to the ERgallbladder workup was negative, she was referred to GI and she notes having had an [facility], but she and her family (who seem quite reliable) notes that they were told it was normal. After the EGD she was given Zofran and Carafate which she notes do not really seem to help all that much. Separately she notes a pretty pervasive fatigue it has been going on for a whileprobably months may be progressive over yearsshe notes it to be fatigue gets worse with any exertiondoes point that sometimes she can even finish washing the dishes without feeling like she needs to lay downshe notes that usually she also feels nauseated whenever she starts to feel more fatigued. Discharge Exam General-alert and oriented x3, no fever, no chills HEENT-head atraumatic and normocephalic, pupils equal and reactive to light, extraocular muscles intact Neck-no lymphadenopathy or thyromegaly, trachea midline Chest-clear to auscultation. No rales, wheezing or rhonchi Cardiac-regular rate and rhythm, normal S1 and S2 Abdomen-normal bowel sounds, no hepatosplenomegaly Extremities-no cyanosis, clubbing, or edema Neuro-cranial nerves II through XII intact, motor and sensory function within normal limits, strength symmetrical, no focal deficits Psych-normal affect, normal mood Discharge Plan Discharge Items Patient Disposition: Home - Self-Care Reason For Visit: ARF, INTRACTABLE NAUSEA Discharge Diagnosis: Suspected chronic cholecystitis causing recurrent nausea, hypokalemia, acute renal failure Condition on Discharge: Good Activity: Resume your previous activity Non-emergency contact: Primary Care Provider Call non-emergency contact if: your symptoms worsen Follow-up/Referrals: Jennie Aquino MD [Primary Care Provider] - Diet: Regular Addtl Attending Provider Instructions: See primary care provider soon as possible to discuss possible laparoscopic cholecystectomy. Hydrochlorothiazide water pill has been discontinued Pending Studies at Discharge: No Stand-Alone Forms: My [employer], Smoking Cessation Medications and DC Order Prescriptions: Continued atorvastatin 40 mg tablet 40 mg PO DAILY Qty: 90 3RF losartan 100 mg tablet 100 mg PO DAILY 90 Days Qty: 90 4RF amlodipine 10 mg tablet 10 mg PO DAILY Qty: 90 3RF fluoxetine 40 mg capsule 40 mg PO DAILY Qty: 90 3RF levothyroxine 137 mcg tablet 137 mcg PO DAILY Qty: 90 3RF sucralfate 1 gram tablet 1 g PO QID pantoprazole [Protonix] 40 mg tablet,delayed release (DR/EC) 40 mg PO BID Discontinued hydrochlorothiazide 12.5 mg tablet 12.5 mg PO DAILY Qty: 90 3RF Discharge Orders: Discharge Order (Routine); Ordered 01/28/25 Ordered By: Rigoberto Dumont Admission Data Admit Date/Time: 01/26/25 14:45 Attending Provider: Rigoberto Dumont Admit Provider: Wolfgang Dale Primary Care Provider: Jennie Aquino Other Providers: Ramon Monk Hospital Stay Data Consultations 01/26/25 13:30 ED Decision to Admit Stat Diagnostic Imagining Performed 01/26/25 11:53 CT abd pelvis wo con Stat Pending Results Patient Have Any Pending Studies at Discharge: No Discharge Instructions Given to Patient (Per Discharging Provider) See primary care provider soon as possible to discuss possible laparoscopic cholecystectomy. Hydrochlorothiazide water pill has been discontinued Total Time Total Time Spent Total Time Spent (In Minutes): 50-minute Coding Level of Care Code 78731 INP/OBS DISCH >30 MIN Diagnoses Nausea R11.0 Hypokalemia E87.6 Acute renal failure N17.9 Acute renal failure type: unspecified Volume depletion E86.9
--- NOTE | 2025-01-28 14:59 | Electrocardiogram Report ---
Test Reason : Blood Pressure : */* mmHG Vent. Rate : 62 BPM Atrial Rate : 62 BPM P-R Int : 190 ms QRS Dur : 84 ms QT Int : 456 ms P-R-T Axes : 32 -12 -21 degrees QTcB Int : 462 ms Normal sinus rhythm Abnormal ECG When compared with ECG of 10-Oct-2024 11:55, No significant change was found Confirmed by Ko Escalona ([id number]) on 01/28/2025 2:59:06 PM Referred By: Jennie Aquino Confirmed By: Ko Escalona
== END 2025-01-28 13:57 | disposition home or self-care (01) | DRG 445 ==
LOC: ED 10:13 → 3W 14:45 → SUATTDRO 14:45 → 3W 18:47